=== PATIENT | male | born 1955 | race African-American/Black ===

== ENCOUNTER 2020-01-16 06:27 | Inpatient (IN) | payer OTHER ==
[~2020-01-16] VITALS: Ht 167.6 cm; Wt 72.6 kg
[~2020-01-16 06:27] MED LIST: ASA81 MG; ATENOLOL50 MG; CEPHALEXIN500 M1 PO; TOPROL XL100 MG
[2020-01-16] MEDS ORDERED: ANODYNE LPT 2.1 EACH (06:53)
[2020-02-11] MEDS ORDERED: TOPROL XL50 M1 PO (11:46)
[2020-02-11] MEDS ORDERED: LOSARTAN-HCTZ1 EAC2 PO (11:46)
[2020-02-11] MEDS ORDERED: AMLODIPINE BESYL5 MG PO (11:46)
== END 2020-02-11 16:17 | disposition home health service (06) | DRG 207 ==
LOC: ER 06:27 → ICU 15:10 → MEDI 15:10 → SEC-K 15:10 → MEDI 15:54 → MEDJ 01-17 08:52 → ICU 01-18 21:44 → MEDJ 02-04 20:15
PROVIDERS: ADMIT Internal Medicine
PROC: 4A12X4Z Monitoring of Cardiac Electrical Activity, External Approach (ICD-10-PCS; 2020-01-16)
PROC: B020ZZZ Computerized Tomography (CT Scan) of Brain (ICD-10-PCS; 2020-01-16)
PROC: 8E0ZXY6 Isolation (ICD-10-PCS; 2020-01-17)
PROC: 0BH17EZ Insertion of Endotracheal Airway into Trachea, Via Natural or Artificial Opening (ICD-10-PCS; principal; 2020-01-18)
PROC: 5A1955Z Respiratory Ventilation, Greater than 96 Consecutive Hours (ICD-10-PCS; 2020-01-18)
PROC: B245ZZZ Ultrasonography of Left Heart (ICD-10-PCS; 2020-01-18)
PROC: 0DH67UZ Insertion of Feeding Device into Stomach, Via Natural or Artificial Opening (ICD-10-PCS; 2020-01-20)
PROC: 3E0G76Z Introduction of Nutritional Substance into Upper GI, Via Natural or Artificial Opening (ICD-10-PCS; 2020-01-20)
PROC: 0B9J7ZX Drainage of Left Lower Lung Lobe, Via Natural or Artificial Opening, Diagnostic (ICD-10-PCS; 2020-01-23)
PROC: 0B9C7ZX Drainage of Right Upper Lung Lobe, Via Natural or Artificial Opening, Diagnostic (ICD-10-PCS; 2020-01-23)
PROC: 0B9G7ZX Drainage of Left Upper Lung Lobe, Via Natural or Artificial Opening, Diagnostic (ICD-10-PCS; 2020-01-23)
PROC: 0B9D7ZX Drainage of Right Middle Lung Lobe, Via Natural or Artificial Opening, Diagnostic (ICD-10-PCS; 2020-01-23)
PROC: 0B9F7ZX Drainage of Right Lower Lung Lobe, Via Natural or Artificial Opening, Diagnostic (ICD-10-PCS; 2020-01-23)
PROC: 4A033R1 Measurement of Arterial Saturation, Peripheral, Percutaneous Approach (ICD-10-PCS; 2020-02-01)
PROC: CB2YYZZ Tomographic (Tomo) Nuclear Medicine Imaging of Respiratory System using Other Radionuclide (ICD-10-PCS; 2020-02-01)
PROC: 4A12X4Z Monitoring of Cardiac Electrical Activity, External Approach (ICD-10-PCS; 2020-02-04)
DX: J10.1 Influenza due to other identified influenza virus with other respiratory manifestations (principal); B37.1 Pulmonary candidiasis; J96.01 Acute respiratory failure with hypoxia; I47.1 Supraventricular tachycardia; J15.0 Pneumonia due to Klebsiella pneumoniae; I27.20 Pulmonary hypertension, unspecified; I48.91 Unspecified atrial fibrillation; J44.9 Chronic obstructive pulmonary disease, unspecified